=== PATIENT | male | born 1975 | race American Indian/Alaskan Native ===

== ENCOUNTER 2016-11-20 03:31 | Emergency (ER) | payer SELFPAY ==
[2016-11-20] MEDS ORDERED: TYLENOL ONE (04:11)
[2016-11-20] MEDS ORDERED: TYLENOL PO ONE (04:18)
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
[2016-11-20 05:02] LABS: Basophils % (Auto) 1.2 % (0.0-1.8); Eosinophils % (Auto) 4.2 % (0.0-4.3); Hematocrit 40.3 % (35.5-45.6); Hemoglobin 13.4 gm/dl (11.8-15.2); Mean Corpuscular HGB Conc 33 % (32-34); Mean Corpuscular Hemoglobin 32 pg (28-32); Mean Corpuscular Volume 96 fl (84-94); Platelet Count 156 K/mm3 (140-440); Red Blood Count 4.22 M/mm3 (3.65-5.03); Red Cell Distribution Width 14.6 % (13.2-15.2); White Blood Count 8.5 K/mm3 (4.5-11.0)
[2016-11-20 05:14] LABS: Anion Gap 21 mmol/L; BUN/Creatinine Ratio 13.33; Blood Urea Nitrogen 12 mg/dL (9-20); Calcium 9.4 mg/dL (8.4-10.2); Carbon Dioxide 21 mmol/L (22-30); Chloride 102.1 mmol/L (98-107); Glucose 66 mg/dL (75-100); Potassium 3.9 mmol/L (3.6-5.0); Sodium 140 mmol/L (137-145)
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
[2016-11-20] MEDS ORDERED: BOOSTRIX IM ONE (07:37)
[2016-11-20] MEDS ORDERED: XYLOCAINE 1% MPF 5 mL INFILTRATI ONE (07:37)
[2016-11-20 09:17] VITALS: BP 150/77
== END 2016-11-20 09:46 | disposition home or self-care (01) ==
LOC: ED 03:31
DX: S41.112A Laceration without foreign body of left upper arm, initial encounter (principal); S61.211A Laceration without foreign body of left index finger without damage to nail, initial encounter; S61.213A Laceration without foreign body of left middle finger without damage to nail, initial encounter; I10 Essential (primary) hypertension; F17.200 Nicotine dependence, unspecified, uncomplicated; F12.10 Cannabis abuse, uncomplicated; Y08.89XA Assault by other specified means, initial encounter; Y93.89 Activity, other specified; Y92.9 Unspecified place or not applicable; Y99.9 Unspecified external cause status
CPT/HCPCS: 12001; 36415; 73080; 80048; 85025; 90471; 90715; 99284; G0480; 80320

== ENCOUNTER 2016-11-21 10:37 | Emergency (ER) | payer OTHER ==
[2016-11-21 10:53] VITALS: BP 142/96
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
[2016-11-21] MEDS ORDERED: XYLOCAINE 1% MPF 5 mL INFILTRATI ONE (11:32)
[2016-11-21] MEDS ORDERED: ROCEPHIN IM ONE (11:32)
== END 2016-11-21 12:07 | disposition home or self-care (01) ==
LOC: ED 10:37
DX: S41.112A Laceration without foreign body of left upper arm, initial encounter (principal); F17.200 Nicotine dependence, unspecified, uncomplicated; I10 Essential (primary) hypertension; E03.9 Hypothyroidism, unspecified; X58.XXXA Exposure to other specified factors, initial encounter; Y93.89 Activity, other specified; Y99.8 Other external cause status; Y92.89 Other specified places as the place of occurrence of the external cause
CPT/HCPCS: 12002; 96372; 99282; J0696

== ENCOUNTER 2016-11-28 12:10 | Emergency (ER) | payer SELFPAY ==
[2016-11-28 12:50] VITALS: BP 139/97
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
== END 2016-11-28 15:56 | disposition home or self-care (01) ==
LOC: ED 12:10
DX: Z48.02 Encounter for removal of sutures (principal); I10 Essential (primary) hypertension; E03.9 Hypothyroidism, unspecified; F17.210 Nicotine dependence, cigarettes, uncomplicated
CPT/HCPCS: 99282

== ENCOUNTER 2017-04-13 16:19 | Emergency (ER) | payer OTHER ==
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
[2017-04-14] MEDS ORDERED: TYLENOL PO ONE (01:08)
[2017-04-14] MEDS ORDERED: MOTRIN PO ONE (01:08)
--- NOTE | 2017-04-14 01:09 | Emergency Department Report ---
ED General Adult HPI - General Chief complaint: Extremity Injury, Upper Stated complaint: HAND INJURY Time Seen by Provider: 04/14/17 01:00 Source: patient Mode of arrival: Ambulatory Limitations: No Limitations - History of Present Illness Initial comments: Patient is a 42-year-old male past medical history of hypertension who presents with left hand pain. Patient is right-handed he states that he had a door slammed on his left hand. Earlier on this morning he states that the pain is a 6 out of 10 moving and standing makes it worse nothing makes it better is a throbbing pain that occurs intermittently. Patient is able to hold and grasps things he denies any change in sensation. And he denies having any injury anywhere else in his body. - Related Data Previous Rx's Medication Instructions Recorded Last Taken Type Cephalexin [Keflex] 500 mg PO Q8HR #21 cap 11/20/16 Unknown Rx Ibuprofen [Motrin] 600 mg PO Q8H PRN #15 tablet 11/20/16 Unknown Rx Amoxicillin/K Clav Tab [Augmentin 1 tab PO Q12HR #14 tab 11/28/16 Unknown Rx 875 mg] Ibuprofen [Motrin] 800 mg PO Q8HR PRN #20 tablet 11/28/16 Unknown Rx Diclofenac Sodium [Voltaren] 100 gm TP Q6H PRN #1 gel..gram. 04/14/17 Unknown Rx amLODIPine [Norvasc] 5 mg PO DAILY #30 tab 04/14/17 Unknown Rx Allergies Allergy/AdvReac Type Severity Reaction Status Date / Time No Known Allergies Allergy Verified 04/13/17 16:29 ED Review of Systems ROS: Stated complaint: HAND INJURY Other details as noted in HPI Constitutional: denies: chills, fever Eyes: denies: eye pain, eye discharge, vision change ENT: denies: ear pain, throat pain Respiratory: denies: cough, shortness of breath, wheezing Cardiovascular: denies: chest pain, palpitations Endocrine: no symptoms reported Gastrointestinal: denies: abdominal pain, nausea, diarrhea Genitourinary: denies: urgency, dysuria Musculoskeletal: as per HPI. denies: back pain, joint swelling, arthralgia Skin: denies: rash, lesions Neurological: denies: headache, weakness, paresthesias Psychiatric: denies: anxiety, depression Hematological/Lymphatic: denies: easy bleeding, easy bruising ED Past Medical Hx - Past Medical History Hx Hypertension: Yes Additional medical history: Hypothyroidism - Surgical History Additional Surgical History: Neck - Social History Smoking Status: Current Every Day Smoker Substance Use Type: Alcohol - Medications Home Medications: Home Medications Medication Instructions Recorded Confirmed Last Taken Type Cephalexin [Keflex] 500 mg PO Q8HR #21 cap 11/20/16 Unknown Rx Ibuprofen [Motrin] 600 mg PO Q8H PRN #15 tablet 11/20/16 Unknown Rx Amoxicillin/K Clav Tab [Augmentin 1 tab PO Q12HR #14 tab 11/28/16 Unknown Rx 875 mg] Ibuprofen [Motrin] 800 mg PO Q8HR PRN #20 tablet 11/28/16 Unknown Rx Diclofenac Sodium [Voltaren] 100 gm TP Q6H PRN #1 gel..gram. 04/14/17 Unknown Rx amLODIPine [Norvasc] 5 mg PO DAILY #30 tab 04/14/17 Unknown Rx ED Physical Exam - General Limitations: No Limitations General appearance: alert, in no apparent distress - Head Head exam: Present: atraumatic, normocephalic - Eye Eye exam: Present: normal appearance - ENT ENT exam: Present: mucous membranes moist - Neck Neck exam: Present: normal inspection - Respiratory Respiratory exam: Present: normal lung sounds bilaterally. Absent: respiratory distress - Cardiovascular Cardiovascular Exam: Present: regular rate, normal rhythm. Absent: systolic murmur, diastolic murmur, rubs, gallop - GI/Abdominal GI/Abdominal exam: Present: soft, normal bowel sounds - Rectal Rectal exam: Present: deferred - Extremities Exam Extremities exam: Present: other (soft tissue swelling +2 radial and ulnar pulses ) - Back Exam Back exam: Present: normal inspection - Neurological Exam Neurological exam: Present: alert, oriented X3 - Psychiatric Psychiatric exam: Present: normal affect, normal mood - Skin Skin exam: Present: warm, dry, intact, normal color. 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 Critical care attestation.: If time is entered above; I have spent that time in minutes in the direct care of this critically ill patient, excluding procedure time. ED Disposition Clinical Impression: Left hand pain Hypertension Qualifiers: Hypertension type: essential hypertension Qualified Code(s): I10 - Essential ( primary) hypertension Disposition: TO HOME OR SELFCARE Is pt being admited?: No Does the pt Need Aspirin: No Condition: Stable Instructions: Hypertension (ED), Arthralgia (ED) Prescriptions: amLODIPine [Norvasc] 5 mg PO DAILY #30 tab Diclofenac Sodium [Voltaren] 100 gm TP Q6H PRN #1 gel..gram. PRN Reason: Pain Referrals: TOD GROSS MD [Primary Care Provider] - 3-5 Days Forms: Work/School Release Form(ED)
[2017-04-14 01:43] VITALS: BP 132/89
== END 2017-04-14 01:43 | disposition home or self-care (01) ==
LOC: ED 16:19
DX: M79.642 Pain in left hand (principal); I10 Essential (primary) hypertension; E03.9 Hypothyroidism, unspecified; F17.200 Nicotine dependence, unspecified, uncomplicated; W22.8XXA Striking against or struck by other objects, initial encounter; Y93.89 Activity, other specified; Y99.8 Other external cause status; Y92.89 Other specified places as the place of occurrence of the external cause
CPT/HCPCS: 99283

== ENCOUNTER 2019-02-10 22:47 | Emergency (ER) | payer SELFPAY | END 2019-02-10 23:00 | disposition left against medical advice (07) | LOC: ED 22:47 | DX: R22.32 Localized swelling, mass and lump, left upper limb (principal); Z53.21 Procedure and treatment not carried out due to patient leaving prior to being seen by health care provider ==